=== PATIENT | male | born 1975 | race Native Hawaiian/Other Pacific Islander ===

== ENCOUNTER 2024-07-03 01:59 | Emergency (ER) | payer OTHER, SELFPAY ==
--- NOTE | ~2024-07-03 | XR_ITS ---
CLINICAL HISTORY: ?r pneumonothorax, sub emphysema r flank area 2 view chest x-ray. Comparison: CT/SR - CT ABDOMEN PELVIS WO IV CON - 07/03/24 03:33 EST Findings: The lungs appear clear. There is no consolidation, effusion, or pneumothorax. Cardiomediastinal silhouette is within normal limits. IMPRESSION: No acute cardiopulmonary abnormality. This document has been electronically signed by: Hansel Hair MD on 07/03/2024 04:05:59
--- NOTE | ~2024-07-03 | CT_ITS ---
CLINICAL HISTORY: Right flank pain CT abdomen and pelvis without contrast Comparison: None Findings: No consolidation or effusion. The gallbladder and solid organs are within normal limits. No renal stones. No hydronephrosis or hydroureter. No significant perinephric fat stranding. No bowel obstruction, pneumoperitoneum, or pneumatosis. Coarse calcifications are identified within the prostate gland. A tiny amount of fat is identified within the bilateral inguinal canals. No bladder wall thickening identified. Normal appendix. No acute fracture identified. Posterior spinal fusion hardware in place with bilateral pedicle screws at the L4 and L5 vertebral levels. Minimal grade 1 retrolisthesis of L3 on L4. Posterior disc osteophyte complex present at L1-L2 with associated central canal stenosis which appears severe. IMPRESSION: 1. No acute inflammatory process identified within the abdomen or pelvis. No radiopaque renal calculi, hydronephrosis, or hydroureter. This document has been electronically signed by: Benjamin lAicea MD on 07/03/2024 04:37:32
[2024-07-03 02:01] VITALS: BP 122/81; PULSE 85; RESP 20; TEMP 36.4; O2SAT 95; BMI 42.4
[2024-07-03 03:06] LABS: MANUAL DIFF FLAG NO
[2024-07-03 03:07] LABS: Basophils Percent Auto 0.4 % (0-2); Eosinophils Absolute Auto 0.2 X10*3/uL (0.0-0.4); Eosinophils Percent Auto 2.6 % (0-4); Hematocrit 48.5 % (42.0-52.0); Hemoglobin 17.3 g/dl (14.0-18.0); Imm Gran Abs Auto 0.01 X10*3/uL (0.00-0.03); Imm Gran Pct Auto 0.1 % (0.0-0.4); Lymphocytes Absolute Auto 2.5 X10*3/uL (1.2-4.9); Lymphocytes Percent Auto 33.2 % (20-40); Mean Corpuscular HGB Conc 35.7 g/dl (31.0-36.0); Mean Corpuscular Volume 84.2 fL (80.0-98.0); Mean Platelet Volume 9.1 fL (9.4-12.4); Monocytes Absolute Auto 0.6 X10*3/uL (0.1-1.2); Monocytes Percent Auto 7.6 % (2-11); Neutrophils Absolute Auto 4.3 x10*3/uL (2.0-8.3); Neutrophils Percent Auto 56.1 % (45-73); Platelet Count 197 X10*3/uL (160-400); Red Blood Count 5.76 X10*6/uL (4.60-5.80); Red Cell Distribution Width 15.1 % (11.0-16.0); White Blood Count 7.7 X10*3/uL (4.8-10.8)
--- NOTE | 2024-07-03 03:24 | ED_ITS ---
HPI - Back Pain/Injury General Chief Complaint: Back Pain/Injury Stated Complaint: lower back and side pain Time Seen by Provider: 07/03/24 02:58 Source: patient Mode of arrival: ambulatory Limitations: no limitations History of Present Illness ED Provider: HPI Narrative: Patient's history of chronic back pain status post posterior spinal fusion comes here for 3- 4 weeks of left lower back pain denies any recent trauma no radiation of pain to the lower extremity no bladder or bowel involvement patient was seen at urgent care center was given methocarbamol without much response no history of kidney stone no gross hematuria Related Data Previous Rx's ?Medication ?Instructions ?Recorded cefuroxime axetil 500 mg tablet 500 mg PO BID 7 days #14 tabs 07/03/24 cyclobenzaprine 10 mg tablet 10 mg PO Q8H #20 tabs 07/03/24 morphine 15 mg immediate release 15 mg PO Q8H PRN pain #15 tabs 07/03/24 tablet Allergies Allergy/AdvReac Type Severity Reaction Status Date / Time amoxicillin Allergy Hives Verified 07/03/24 02:04 tizanidine AdvReac Hallucinati Verified 07/03/24 02:05 ons Review of Systems 2 Review of Systems: Yes all other systems are reviewed and are negative PMFSH Social History Social History Advance Directives: No Advance Directives Information Provided: Yes Do you have a plan to hurt others: No Plan Physical Exam 2 Vital Signs: Vital Signs: Last Vital Signs Temp 97.8 F 07/03/24 05:55 Pulse 79 07/03/24 05:55 Resp 18 07/03/24 05:55 BP 109/72 07/03/24 05:55 Pulse Ox 96 07/03/24 05:55 O2 Del Method Room Air 07/03/24 05:55 BMI result Body Mass Index 42.4 Appearance: Alert. Oriented X3. No acute distress. Eyes: PERRLA, No Nystagmus ENT: Pharynx normal. Oral Mucosa moist Neck: Normal inspection. Neck supple. CVS: Normal heart rate and rhythm. Pulses normal. Respiratory: No respiratory distress. Equal air entry bilateral, no wheezing/rales/rhonchi Abdomen: Soft and nontender. Bowel sounds are present, tenderness right lumbar paraspinal area no mass palpable, no CVA tenderness Skin: Skin warm and dry. Normal skin color. Normal skin turgor. Extremities: No lower extremity edema. No calf tenderness SLR negative bilaterally sacral sensation intact Neuro: Oriented X 3. No motor deficit. No sensory deficit.No cerebellar signs , cranial nerves II-XII intact Medications Administered Discontinued Medications Generic Name Dose Route Start Last Admin Trade Name Ellen PRN Reason Stop Dose Admin Cyclobenzaprine HCl 10 mg 07/03/24 06:34 07/03/24 06:48 Cyclobenzaprine Hcl 10 Mg Tablet PO 07/03/24 06:35 10 mg ONCE ONE Administration Morphine Sulfate 15 mg 07/03/24 04:00 07/03/24 04:10 Morphine Sulfate Immed Release 15 Mg Tablet PO 07/03/24 04:01 15 mg ONCE ONE Administration Oxycodone HCl 10 mg 07/03/24 06:34 07/03/24 06:48 Oxycodone Hcl Immed Release 5 Mg Tablet PO 07/03/24 06:35 10 mg ONCE ONE Administration Medical Decision Making Medical Decision Making [facility] Narrative: Patient with chronic back pain comes here for increased pain in the right lower back for last [address] scan negative for acute urine also negative discharge patient home on oxycodone and muscle relaxant urine showed WBCs and bacteria possible causing the contributing to the pain will prescribe cefuroxime Differential Diagnosis Differential Diagnoses: The differential diagnosis associated with the presentation includes Renal colic/hardware failure/fracture/strain/pyelonephritis/UTI Admission/Observation Consideration of admission/observation: Escalation of care including admission/observation considered Lab Data [facility] Lab Attestation statement: I reviewed the patient's lab results. 07/03/24 03:00 07/03/24 03:00 Labs: Lab Results 07/03/24 07/03/24 Range/Units 03:00 06:11 WBC 7.7 (4.8-10.8) X10*3/uL RBC 5.76 (4.60-5.80) X10*6/uL Hgb 17.3 (14.0-18.0) g/dl Hct 48.5 (42.0-52.0) % MCV 84.2 (80.0-98.0) fL MCH 30.0 (27.0-33.0) pg MCHC 35.7 (31.0-36.0) g/dl RDW 15.1 (11.0-16.0) % Plt Count 197 (160-400) X10*3/uL MPV 9.1 L (9.4-12.4) fL Immature Gran % (Auto) 0.1 (0.0-0.4) % Neut % (Auto) 56.1 (45-73) % Lymph % (Auto) 33.2 (20-40) % [place] % (Auto) 7.6 (2-11) % Eos % (Auto) 2.6 (0-4) % Baso % (Auto) 0.4 (0-2) % Lymph # (Auto) 2.5 (1.2-4.9) X10*3/uL [place] # (Auto) 0.6 (0.1-1.2) X10*3/uL Eos # (Auto) 0.2 (0.0-0.4) X10*3/uL Baso # (Auto) 0.0 (0.0-0.2) X10*3/uL Abs Immat Gran (auto) 0.01 (0.00-0.03) X10*3/uL Absolute Neuts (auto) 4.3 (2.0-8.3) x10*3/uL Absolute Nucleated RBC 0.000 (0.0-0.012) X10*3/uL Nucleated RBC % (auto) 0.0 (0.0-0.2) /100WBC Sodium 143 (135-145) mmol/L Potassium 3.6 (3.3-5.1) mmol/L Chloride 110 H (96-108) mmol/L Carbon Dioxide 23 (22-29) mmol/L Anion Gap 14 (12-20) BUN 22 H (9-16) mg/dL Creatinine 2.14 H (0.5-1.4) mg/dL Estim Creat Clear Calc 48.5 Estimated GFR 33 Random Glucose 94 (60-115) mg/dL Calcium 8.4 (8.4-10.2) mg/dL Total Bilirubin 0.7 (0.0-1.0) mg/dL AST 21 (5-37) U/L ALT 21 (0-40) U/L Alkaline Phosphatase 64 (39-117) U/L Total Protein 6.8 (6.5-8.0) g/dL Albumin 4.1 (3.5-5.0) g/dL Urine Color Yellow Urine Appearance Cloudy Urine pH 5.0 (5.0-9.0) Ur Specific [place] 1.015 (1.005-1.025) Urine Protein 30 (1+) H (Neg-Trace) mg/dL Urine Glucose (UA) >=1000 H (Negative) mg/dL Urine Ketones Negative (Negative) mg/dL Urine Blood Negative (Negative) Urine Nitrite Negative (Negative) Ur Leukocyte Esterase Moderate (2+) H (Negative) Urine RBC 0-2 (0-2) /HPF Urine WBC 21-50 (0-5) /HPF Ur Squamous Epith Cells 3-5 (0-2) /HPF Urine Bacteria 1+ (None Seen) Hyaline Casts 3-5 (0-2) /LPF Independent Interpretation I performed an independent interpretation of an: CT Scan Radiology Impression Discussion of test interpretation with radiology: I have reviewed the radiologist's reading. Radiologist Impression: [place] [id number] CT Scan Report Signed Patient: Ross Cordero MR#: [id number] : 1975 Acct:[id number] Age/Sex: 48 / M ADM Date: 07/03/24 Loc: .ED Attending Dr: Ordering Physician: Abe Abdi MD Date of Service: 07/03/24 Procedure(s): CT abdomen pelvis wo IV con Accession Number(s): [id number] cc: Jana Meier MD; Abe Abdi MD~ Report Number: [id number]: Total DLP = 900.00 mGy-cm CLINICAL HISTORY: Right flank pain CT abdomen and pelvis without contrast Comparison: None Findings: No consolidation or effusion. The gallbladder and solid organs are within normal limits. No renal stones. No hydronephrosis or hydroureter. No significant perinephric fat stranding. No bowel obstruction, pneumoperitoneum, or pneumatosis. Coarse calcifications are identified within the prostate gland. A tiny amount of fat is identified within the bilateral inguinal canals. No bladder wall thickening identified. Normal appendix. No acute fracture identified. Posterior spinal fusion hardware in place with bilateral pedicle screws at the L4 and L5 vertebral levels. Minimal grade 1 retrolisthesis of L3 on L4. Posterior disc osteophyte complex present at L1-L2 with associated central canal stenosis which appears severe. IMPRESSION: 1. No acute inflammatory process identified within the abdomen or pelvis. No radiopaque renal calculi, hydronephrosis, or hydroureter. This document has been electronically signed by: Benjamin Alicea MD on 07/03/2024 04:37:32 Dictated By: Benjamin Alicea MD Signed By: <Electronically signed by Benjamin Alicea MD in OV> 07/03/24 0438 Discharge Plan Discharge Clinical Impression: Strain of lumbar region, UTI (urinary tract infection) Patient Disposition: Home, Self-Care Instructions: Urinary Tract Infection in Men (ED), Back Pain (ED) Additional Instructions: Rest at home You have slight UTI take antibiotic as prescribed maybe that is contributing to increased pain Take pain medication and muscle relaxant as advised Follow up with your pain clinic/orthopedic Prescriptions: New cyclobenzaprine 10 mg tablet 10 mg PO Q8H Qty: 20 0RF morphine 15 mg tablet 15 mg PO Q8H PRN (Reason: pain) Qty: 15 0RF Rx Instructions: Partial Fill upon patient request. cefuroxime axetil 500 mg tablet 500 mg PO BID 7 Days Qty: 14 0RF Print Language: Yi
[2024-07-03 03:28] LABS: Alanine Aminotransferase 21 U/L (0-40); Albumin Level 4.1 g/dL (3.5-5.0); Alkaline Phosphatase 64 U/L (39-117); Anion Gap 14 (12-20); Aspartate Amino Transferase 21 U/L (5-37); Bilirubin Total 0.7 mg/dL (0.0-1.0); Blood Urea Nitrogen 22 mg/dL (9-16); Calcium 8.4 mg/dL (8.4-10.2); Carbon Dioxide 23 mmol/L (22-29); Chloride 110 mmol/L (96-108); Creatinine Clr Calc Pharmacy 48.5; Estimated Glomerular Filt Rate 33; Glucose Random 94 mg/dL (60-115); Potassium 3.6 mmol/L (3.3-5.1); Sodium 143 mmol/L (135-145); Total Protein 6.8 g/dL (6.5-8.0)
[2024-07-03] MEDS: Morphine Sulfate Immed Release 15 MG TABLET PO (04:10)
[2024-07-03 05:55] VITALS: BP 109/72; PULSE 79; RESP 18; TEMP 36.6; O2SAT 96
[2024-07-03 06:16] LABS: Appearance Urine Cloudy; Color Urine Yellow; Glucose Urine UA >=1000 mg/dL (Negative); Leukocyte Esterase Urine Moderate (2+) (Negative); Nitrite Urine Negative (Negative); Specific Gravity - Urine 1.015 (1.005-1.025); UMIC TRIGGER UACC YES; Urine Blood Negative (Negative); Urine Ketones Negative (Negative); Urine Protein 30 (1+) mg/dL (Neg-Trace)
[2024-07-03 06:46] LABS: Bacteria Urine 1+ (None Seen); RBC Urine 0-2 /HPF (0-2); UACC Culture Trigger YES; WBC Urine 21-50 /HPF (0-5)
[2024-07-03] MEDS: oxyCODONE HCl Immed Release 5 MG TABLET 10 MG PO (06:48)
[2024-07-03] MEDS: Cyclobenzaprine HCl 10 MG TABLET PO (06:48)
[2024-07-03 07:10] VITALS: BP 110/69; PULSE 81; RESP 20; TEMP 36.4; O2SAT 96
[2024-07-03] MEDS: cefuroxime axetiL 500 MG TABLET PO (07:11)
[2024-07-03 07:13] VITALS: BP 110/69; PULSE 81; RESP 20; TEMP 36.4; O2SAT 96
== END 2024-07-03 07:13 | disposition home or self-care (01) ==
PROVIDERS: Emergency Provider Internal Medicine; PCP Internal Medicine
DX: S39.012A Strain of muscle, fascia and tendon of lower back, initial encounter (principal); X58.XXXA Exposure to other specified factors, initial encounter; N39.0 Urinary tract infection, site not specified; Y93.9 Activity, unspecified; Y92.9 Unspecified place or not applicable; Y99.9 Unspecified external cause status
CPT/HCPCS: 36415; 71046; 74176; 80053; 81001; 85025; 87086; 99284

== ENCOUNTER → 2024-07-03 03:24 | Outpatient (BNV) | payer OTHER, SELFPAY | PROVIDERS: Emergency Provider Internal Medicine; PCP Internal Medicine; Visit Provider Radiology Diagnostic Radiology | DX: N42.0 Calculus of prostate (principal); M25.78 Osteophyte, vertebrae; M48.062 Spinal stenosis, lumbar region with neurogenic claudication; M54.6 Pain in thoracic spine | CPT/HCPCS: 71046; 74176 ==

== ENCOUNTER 2024-08-12 08:40 | Emergency (ER) | payer OTHER, SELFPAY ==
--- NOTE | ~2024-08-12 | CT_ITS ---
EXAMINATION: CT ABDOMEN PELVIS WITHOUT IV CONTRAST HISTORY: flank pain COMPARISON: Comparison is made with the prior examination dated 07/03/2024. TECHNIQUE: CT scan of the abdomen and pelvis was performed without contrast using standard departmental protocol. Coronal and sagittal reformatted images were generated and reviewed. Oral contrast material was not administered per department protocol. This CT exam was performed with one or more of the following dose reduction techniques: automated exposure control, adjustment of the mA and/or kV according to patient size, use of iterative reconstruction technique. DLP: 859 mGy-cm FINDINGS: LOWER CHEST: The visualized lung bases are clear. There is no pleural effusion. CARDIOVASCULATURE: The heart is normal in size. There is no pericardial effusion. LIVER: The liver is normal in size and contour. The liver has an unremarkable unenhanced appearance. GALLBLADDER / BILE DUCTS: The gallbladder is unremarkable. There is no intra or extrahepatic biliary ductal dilatation. SPLEEN: The spleen is normal in size and has an unremarkable unenhanced appearance. PANCREAS: The pancreas has an unremarkable unenhanced appearance. ADRENAL GLANDS: Unremarkable. KIDNEYS/RETROPERITONEUM: No renal or ureteral calculi are identified. There is no hydronephrosis or hydroureter. LYMPH NODES: No retroperitoneal lymphadenopathy is identified in the abdomen or pelvis. VASCULATURE: The abdominal aorta is normal in caliber. MESENTERY/PERITONEUM: No free fluid. No masses. There is no free intraperitoneal gas. STOMACH: There is debris in the stomach. SMALL BOWEL: The small bowel is normal in caliber. COLON: The colon is unremarkable. APPENDIX: Normal. URINARY BLADDER/PELVIC ORGANS: The urinary bladder is unremarkable. The prostate is normal in size. BONES / SOFT TISSUES: The patient is status post posterior fusion of L4 and L5 with pedicle screws and spinal stabilization rods. CT/CT abdomen pelvis wo IV con IMPRESSION: No evidence of nephrolithiasis or ureteral obstruction. No acute abnormality is identified. Electronically signed by: Sabino Ward MD 08/12/2024 11:51 AM [facility]
[2024-08-12 08:59] VITALS: BP 106/70; PULSE 83; RESP 18; TEMP 36.4; O2SAT 98; BMI 42.5
[2024-08-12 09:15] LABS: MANUAL DIFF FLAG NO
[2024-08-12 09:17] LABS: Appearance Urine Clear; Color Urine Yellow; Glucose Urine UA 500 mg/dL (Negative); Leukocyte Esterase Urine Trace (Negative); Nitrite Urine Negative (Negative); UMIC TRIGGER UACC YES; Urine Blood Negative (Negative); Urine Ketones Negative (Negative); Urine Protein Negative (Neg-Trace)
[2024-08-12 09:19] LABS: Bacteria Urine None Seen (None Seen); Basophils Percent Auto 0.6 % (0-2); Eosinophils Absolute Auto 0.3 X10*3/uL (0.0-0.4); Eosinophils Percent Auto 4.3 % (0-4); Hematocrit 50.2 % (42.0-52.0); Hemoglobin 17.8 g/dl (14.0-18.0); Hyaline Casts Urine 0-2 /LPF (0-2); Imm Gran Abs Auto 0.01 X10*3/uL (0.00-0.03); Imm Gran Pct Auto 0.2 % (0.0-0.4); Lymphocytes Absolute Auto 2.1 X10*3/uL (1.2-4.9); Lymphocytes Percent Auto 32.3 % (20-40); Mean Corpuscular HGB Conc 35.5 g/dl (31.0-36.0); Mean Corpuscular Hemoglobin 30.5 pg (27.0-33.0); Mean Platelet Volume 9.3 fL (9.4-12.4); Monocytes Absolute Auto 0.6 X10*3/uL (0.1-1.2); Monocytes Percent Auto 8.7 % (2-11); Neutrophils Absolute Auto 3.5 x10*3/uL (2.0-8.3); Neutrophils Percent Auto 53.9 % (45-73); Platelet Count 176 X10*3/uL (160-400); RBC Urine 0-2 /HPF (0-2); Red Blood Count 5.84 X10*6/uL (4.60-5.80); Red Cell Distribution Width 15.3 % (11.0-16.0); Squamous Epithelial Cell Urine 0-2 /HPF (0-2); WBC Urine 0-5 /HPF (0-5); White Blood Count 6.6 X10*3/uL (4.8-10.8)
[2024-08-12 09:35] LABS: Alanine Aminotransferase 45 U/L (0-40); Albumin Level 4.4 g/dL (3.5-5.0); Alkaline Phosphatase 63 U/L (39-117); Anion Gap 16 (12-20); Aspartate Amino Transferase 27 U/L (5-37); Bilirubin Total 0.5 mg/dL (0.0-1.0); Blood Urea Nitrogen 23 mg/dL (9-16); Calcium 9.3 mg/dL (8.4-10.2); Carbon Dioxide 20 mmol/L (22-29); Chloride 109 mmol/L (96-108); Creatinine Clr Calc Pharmacy 59.1; Estimated Glomerular Filt Rate 41; Glucose Random 99 mg/dL (60-115); Potassium 4.3 mmol/L (3.3-5.1); Sodium 141 mmol/L (135-145); Total Protein 7.7 g/dL (6.5-8.0)
--- NOTE | 2024-08-12 10:53 | ED_ITS ---
HPI - General Adult General Chief complaint: Abdominal Pain Stated complaint: Rib pain Time Seen by Provider: 08/12/24 10:52 Source: patient and old records reviewed Mode of arrival: ambulatory Limitations: no limitations History of Present Illness ED Provider: Sridevi Lott PA-C HPI narrative: Patient is a 48 year old assigned male at with a history of atrial fib on anti-coags, CKD, MASOOD, HTN, AMINTA, PTSD, and DM presenting to the emergency department today with bilateral flank pain and central back pain. Patient states that he was seen here 1 month ago for something similar and was told that it was a UTI. Patient states that he is concerned that he has a UTI again now because he is having bilateral flank and spine pain with walking. Patient denies any dizziness, lightheadedness, abdominal pain, nausea, vomiting, fever, chills, blurry vision, double vision, loss of vision, chest pain, difficulty breathing, shortness of breath, night sweats, pain with urination, increased urinary frequency, increased urinary urgency, blood in his urine or stool, syncope or a near syncopal episode, recent trauma or falls, bowel incontinence, bladder incontinence, or any other complaints at this time. Relieving factors: rest Exacerbating factors: movement Associated symptoms: denies other symptoms Treatments prior to arrival: none Related Data Previous Rx's ?Medication ?Instructions ?Recorded cefuroxime axetil 500 mg tablet 500 mg PO BID 7 days #14 tabs 07/03/24 cyclobenzaprine 10 mg tablet 10 mg PO Q8H #20 tabs 07/03/24 morphine 15 mg immediate release 15 mg PO Q8H PRN pain #15 tabs 07/03/24 tablet cyclobenzaprine 5 mg tablet 5 mg PO TID PRN pain 7 days #21 08/12/24 tabs Allergies Allergy/AdvReac Type Severity Reaction Status Date / Time amoxicillin Allergy Hives Verified 08/12/24 09:03 tizanidine AdvReac Hallucinati Verified 08/12/24 09:03 ons Review of Systems 2 Constitutional: Constitutional: Reports no additional constitutional complaints, Denies chills, Denies fever(s) and Denies night sweats Eyes: Eyes: Reports no additional eye complaints, Denies blurry vision, Denies change in vision, Denies diplopia, Denies eye discharge, Denies loss of vision and Denies eye pain ENT: Denies dizziness Cardiovascular: Cardiovascular: Reports no additional cardiovascular complaints, Denies chest pain, Denies lightheadedness, Denies Loss of Consciousness and Denies dyspnea Respiratory: Respiratory: Reports no additional respiratory complaints and Denies dyspnea Gastrointestinal: Gastrointestinal: Reports no additional gastrointestinal complaints, Denies abdominal pain, Denies melena, Denies hematochezia, Denies change in bowel habits and Denies change in stool character Genitourinary: Genitourinary: Reports no additional male genitourinary complaints, Denies hematuria, Denies oliguria, Denies difficulty urinating, Denies dysuria, Reports flank pain, Denies urinary frequency, Denies urinary hesitancy, Denies urinary incontinence and Denies urinary urgency Musculoskeletal: Musculoskeletal: Reports no additional musculoskeletal complaints, Reports back pain, Denies numbness and Denies tingling Neurologic: Denies dizziness, Denies loss of vision, Denies numbness and Denies tingling Psychiatric: Psychiatric: Reports no additional psychiatric complaints Endocrine: Endocrine: Reports no additional endocrine complaints Hematologic/Lymphatic: Hematologic/Lymphatic: Reports no additional hematologic/lymphatic complaints Allergic/Immunologic: Allergic/Immunologic: Reports no additional allergic/immunologic complaints PMFSH Past Medical History Attestation statement: The following information was validated with the patient. Source: old records reviewed and nursing notes reviewed Social History Social History Advance Directives: No Advance Directives Information Provided: Yes Do you have a plan to hurt others: No Plan Physical Exam ED Vital Signs: Vital Signs - 24 hr 08/12/24 08:59 Temperature 97.6 F Pulse Rate 83 Respiratory Rate 18 Blood Pressure 106/70 Pulse Oximetry 98 Oxygen Delivery Method Room Air BMI result Body Mass Index 42.5 Const General: cooperative, no acute distress, alert and awake Nutritional Appearance: well nourished Orientation/consciousness: patient oriented x3 Limitations: no limitations HENMT Head: Yes normal to inspection and Yes atraumatic Ears: hearing grossly normal bilaterally and external ears normal General nose exam: Normal external nose present, no nasal discharge noted and no epistaxis Face and sinus: Yes normal facial exam, No abrasion and No laceration Mouth: Normal oral and palatal mucosa present, no drooling and no muffled voice Eyes General: appearance normal, both eyes and all related structures Periorbital: periorbital findings normal Eyelids: Yes eyelids normal Conjunctivae: conjunctivae normal Pupils: Equal, round and reactive pupils present EOM: EOMs intact bilaterally Neck Neck: Yes normal visual inspection, Yes full ROM and Yes no lymphadenopathy Chest Chest palpation & inspection: normal inspection of the chest Resp Effort & Inspection: normal respiratory effort and able to speak in complete sentences GI Inspection: Yes normal to inspection Neuro General: patient oriented x3, moves all extremities and CN's II-XI intact bilaterally Cranial nerves: Yes Equal, round and reactive pupils present Cognition (Neuro): normal cognition Extrem General: Yes normal to inspection, Yes full ROM and Yes capillary refill normal Psych Appearance: grossly normal Mental Status: mental status grossly normal Affect: normal affect Attitude: cooperative Thought process: Normal thought process present Thought content: Normal thought content present Insight: Good insight present (Psych) Medications Administered Discontinued Medications Generic Name Dose Route Start Last Admin Trade Name Freq PRN Reason Stop Dose Admin Sodium Chloride 1,000 mls @ 999 mls/hr 08/12/24 11:00 08/12/24 11:10 Ns IV 08/12/24 12:00 999 mls/hr .Q1H1M LIZZY Administration Ketorolac Tromethamine 15 mg 08/12/24 10:57 08/12/24 11:10 Ketorolac Tromethamine 15 Mg/Ml Vial IVPUSH 08/12/24 10:58 15 mg ONCE ONE Administration Medical Decision Making Medical Decision Making [facility] Narrative: Patient is a 48 year old assigned male at with a history of atrial fib on anti-coags, CKD, MASOOD, HTN, AMINTA, PTSD, and DM presenting to the emergency department today with bilateral flank pain and central back pain. Patient's physical exam was unremarkable. Patient's blood work showed a mildly elevated CR. When reviewing the patient's records from [facility] - this is consistent with the patient's baseline. Patient's urine showed no acute process. Patient's CT abd/pelvis showed no acute process. I explained my physical exam findings as well as all test results to the patient. I answered all questions asked by the patient. Patient's clinical presentation is most consistent with musculoskeletal back pain. I stressed the importance of the patient taking his medication as directed (either prescribed or as the over the counter packaging recommends). I stressed the importance of the patient following up with his primary care provider. I stressed the importance of the patient returning to the emergency department immediately if his symptoms were to worsen or if he were to develop any dizziness, shortness of breath, difficulty breathing, chest pain, blurry vision, loss of vision, nausea, vomiting, abdominal pain, fever, chills, back pain, or any other complaints. Patient verbalized agreement and understanding with this treatment plan and discharge. Differential Diagnosis Differential Diagnoses: The differential diagnosis associated with the presentation includes Flank pain UTI Kidney stone Back pain Musculoskeletal pain Admission/Observation Consideration of admission/observation: Escalation of care including admission/observation considered Patient would have been admitted to the hospital had his work up had any findings where hospital admission was appropriate and his clinical presentation warranted hospital admission. Lab Data [facility] Lab Attestation statement: I reviewed the patient's lab results. My interpretation of these results are in the [facility] Rationale portion of this note. 08/12/24 09:11 08/12/24 09:11 Labs: Lab Results 08/12/24 Range/Units 09:11 WBC 6.6 (4.8-10.8) X10*3/uL RBC 5.84 H (4.60-5.80) X10*6/uL Hgb 17.8 (14.0-18.0) g/dl Hct 50.2 (42.0-52.0) % MCV 86.0 (80.0-98.0) fL MCH 30.5 (27.0-33.0) pg MCHC 35.5 (31.0-36.0) g/dl RDW 15.3 (11.0-16.0) % Plt Count 176 (160-400) X10*3/uL MPV 9.3 L (9.4-12.4) fL Immature Gran % (Auto) 0.2 (0.0-0.4) % Neut % (Auto) 53.9 (45-73) % Lymph % (Auto) 32.3 (20-40) % [place] % (Auto) 8.7 (2-11) % Eos % (Auto) 4.3 H (0-4) % Baso % (Auto) 0.6 (0-2) % Lymph # (Auto) 2.1 (1.2-4.9) X10*3/uL [place] # (Auto) 0.6 (0.1-1.2) X10*3/uL Eos # (Auto) 0.3 (0.0-0.4) X10*3/uL Baso # (Auto) 0.0 (0.0-0.2) X10*3/uL Abs Immat Gran (auto) 0.01 (0.00-0.03) X10*3/uL Absolute Neuts (auto) 3.5 (2.0-8.3) x10*3/uL Absolute Nucleated RBC 0.000 (0.0-0.012) X10*3/uL Nucleated RBC % (auto) 0.0 (0.0-0.2) /100WBC Sodium 141 (135-145) mmol/L Potassium 4.3 (3.3-5.1) mmol/L Chloride 109 H (96-108) mmol/L Carbon Dioxide 20 L (22-29) mmol/L Anion Gap 16 (12-20) BUN 23 H (9-16) mg/dL Creatinine 1.76 H (0.5-1.4) mg/dL Estim Creat Clear Calc 59.1 Estimated GFR 41 Random Glucose 99 (60-115) mg/dL Estimat Average Glucose 97 mg/dL Hemoglobin A1c % 5.0 (<6.0) % Calcium 9.3 D (8.4-10.2) mg/dL Magnesium 2.0 (1.6-2.6) mg/dL Total Bilirubin 0.5 (0.0-1.0) mg/dL AST 27 (5-37) U/L ALT 45 H (0-40) U/L Alkaline Phosphatase 63 (39-117) U/L Total Protein 7.7 (6.5-8.0) g/dL Albumin 4.4 (3.5-5.0) g/dL Urine Color Yellow Urine Appearance Clear Urine pH 5.0 (5.0-9.0) Ur Specific [place] 1.010 (1.005-1.025) Urine Protein Negative (Neg-Trace) mg/dL Urine Glucose (UA) 500 H (Negative) mg/dL Urine Ketones Negative (Negative) mg/dL Urine Blood Negative (Negative) Urine Nitrite Negative (Negative) Ur Leukocyte Esterase Trace H (Negative) Urine RBC 0-2 (0-2) /HPF Urine WBC 0-5 (0-5) /HPF Ur Squamous Epith Cells 0-2 (0-2) /HPF Urine Bacteria None Seen (None Seen) Hyaline Casts 0-2 (0-2) /LPF Independent Interpretation I performed an independent interpretation of an: CT Scan Interpretation: My interpretation is in agreement with the radiologist's impression of this imaging study. L Report Number: [id number]: Total DLP = 671.00 mGy-cm EXAMINATION: CT ABDOMEN PELVIS WITHOUT IV CONTRAST HISTORY: flank pain COMPARISON: Comparison is made with the prior examination dated 07/03/2024. TECHNIQUE: CT scan of the abdomen and pelvis was performed without contrast using standard departmental protocol. Coronal and sagittal reformatted images were generated and reviewed. Oral contrast material was not administered per department protocol. This CT exam was performed with one or more of the following dose reduction techniques: automated exposure control, adjustment of the mA and/or kV according to patient size, use of iterative reconstruction technique. DLP: 859 mGy-cm FINDINGS: LOWER CHEST: The visualized lung bases are clear. There is no pleural effusion. CARDIOVASCULATURE: The heart is normal in size. There is no pericardial effusion. LIVER: The liver is normal in size and contour. The liver has an unremarkable unenhanced appearance. GALLBLADDER / BILE DUCTS: The gallbladder is unremarkable. There is no intra or extrahepatic biliary ductal dilatation. SPLEEN: The spleen is normal in size and has an unremarkable unenhanced appearance. PANCREAS: The pancreas has an unremarkable unenhanced appearance. ADRENAL GLANDS: Unremarkable. KIDNEYS/RETROPERITONEUM: No renal or ureteral calculi are identified. There is no hydronephrosis or hydroureter. LYMPH NODES: No retroperitoneal lymphadenopathy is identified in the abdomen or pelvis. VASCULATURE: The abdominal aorta is normal in caliber. MESENTERY/PERITONEUM: No free fluid. No masses. There is no free intraperitoneal gas. STOMACH: There is debris in the stomach. SMALL BOWEL: The small bowel is normal in caliber. COLON: The colon is unremarkable. APPENDIX: Normal. URINARY BLADDER/PELVIC ORGANS: The urinary bladder is unremarkable. The prostate is normal in size. BONES / SOFT TISSUES: The patient is status post posterior fusion of L4 and L5 with pedicle screws and spinal stabilization rods. CT/CT abdomen pelvis wo IV con IMPRESSION: No evidence of nephrolithiasis or ureteral obstruction. No acute abnormality is identified. Electronically signed by: Sabino Ward MD 08/12/2024 11:51 AM EST Dictated By: Sabino Ward MD Signed By: Electronically signed by Sabino Ward MD 08/12/24 1151 Radiology Impression Discussion of test interpretation with radiology: I have reviewed the radiologist's reading. Prescription Management I considered prescription management with: Pain Medication (patient prescribed pain medication) Chronic Conditions Patient?s care impacted by: Diabetes Discharge Plan Discharge Clinical Impression: Musculoskeletal back pain Patient Disposition: Home, Self-Care Instructions: Back Pain (ED) Additional Instructions: Your work up today was reassuring. Your labs are consistent with your baseline. Your imaging showed no acute process. Follow up with your primary care provider. Return to the emergency department immediately if your symptoms worsen or if you develop any dizziness, shortness of breath, difficulty breathing, chest pain, blurry vision, loss of vision, nausea, vomiting, abdominal pain, fever, chills, back pain, or any other complaints. Prescriptions: New cyclobenzaprine 5 mg tablet 5 mg PO TID PRN (Reason: pain) 7 Days Qty: 21 0RF No Action cyclobenzaprine 10 mg tablet 10 mg PO Q8H Qty: 20 0RF morphine 15 mg tablet 15 mg PO Q8H PRN (Reason: pain) Qty: 15 0RF Rx Instructions: Partial Fill upon patient request. cefuroxime axetil 500 mg tablet 500 mg PO BID 7 Days Qty: 14 0RF Referrals: Jana Meier MD [Primary Care Provider] - Stand Alone Forms: Work/School Release Print Language: Estonian
[2024-08-12] MEDS: Ketorolac Tromethamine 15 MG/ML VIAL IVPUSH (11:10)
[2024-08-12] MEDS: 0.9 % Sodium Chloride 1,000 ML 999 ML IV (11:10)
[2024-08-12 11:18] LABS: Estimated Average Glucose 97 mg/dL; Hemoglobin A1C 141.2444 umol/L; Total Hemoglobin (HGBA1C) 4461.8068 umol/L
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
--- OUTSIDE RECORDS SUMMARY | 2024-08-12 11:45 | XMS_ITS | Clinical Summary ---
Author Organization [facility] Address [address] [place] [address] Care Team Providers Care Knitter Helper Name Role Phone Jana Meier MD Primary Care Provider + Allergies Active Allergy Reactions Criticality Noted Date Comments Amoxicillin 01/10/2023 Medications Medication Sig Dispensed Refills Start Date End Date Status amLODIPine (NORVASC) tablet 10 mg Take 1 tablet (10 mg total) by mouth. 0 09/25/2020 Active Eliquis 5 MG TABS tablet TAKE 1 TABLET BY MOUTH 2 (TWO) TIMES DAILY FURTHER REFILLS REQUIRES APPT WITH PCP 0 12/24/2022 Active aspirin 81 MG EC tablet Take 1 tablet (81 mg total) by mouth daily. 0 09/30/2020 Active atorvastatin (LIPITOR) tablet 40 mg Take 1 tablet (40 mg total) by mouth every night at bedtime. 0 10/24/2022 Active baclofen (LIORESAL) 10 MG tablet Take 1 tablet (10 mg total) by mouth 3 (three) times a day. 0 12/17/2022 Active Jardiance 25 MG TABS Take 1 tablet by mouth every morning. 0 12/23/2022 Active gabapentin (NEURONTIN) 300 MG capsule TAKE 1 CAP ORALLY AT 8AM AND 4PM. 0 10/20/2022 Active gabapentin (NEURONTIN) 800 MG tablet Take 1 tablet (800 mg total) by mouth every evening. 0 12/26/2022 Active metFORMIN (GLUCOPHAGE) tablet 1000 mg Take 1 tablet (1,000 mg total) by mouth 2 (two) times a day. 0 12/17/2022 Active omeprazole (PriLOSEC) 20 MG capsule TAKE 1 CAPSULE BY MOUTH EVERY DAY IN THE MORNING BEFORE BREAKFAST 0 10/12/2022 Active Potassium Chloride ER 20 MEQ TBCR TAKE 1 TABLET BY MOUTH EVERY DAY IN THE MORNING 0 11/13/2022 Active tamsulosin (FLOMAX) 0.4 MG CAPS TAKE 1 CAPSULE BY MOUTH EVERY DAY BEFORE BED 0 11/15/2022 Active torsemide (DEMADEX) 10 MG tablet Take 1 tablet (10 mg total) by mouth daily. 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 01/10/2023 Social History Tobacco Use Types Packs/Day Years Used Date Smoking Tobacco: Never Smokeless Tobacco: Never Tobacco Cessation:Counseling Given: Not Answered Alcohol Use Standard Drinks/Week Comments Not Currently 0 (1 standard drink = 0.6 oz pur e alcohol) Sex and Gender Information Value Date Recorded Sex Assigned at Male 11/21/2022 3:15 PM EDT Gender Identity Not on file Sexual Orientation Not on file Job Start Date Occupation Industry Not on file Not on file Not on file Last Filed Vital Signs Vital Sign Reading Time Taken Comments Blood Pressure 127/81 01/10/2023 3:45 PM EDT Pulse 80 01/10/2023 3:45 PM EDT Temperature 36.7 ??C (98 ??F) 01/10/2023 3:45 PM EDT Respiratory Rate - - Oxygen Saturation 97% 01/10/2023 3:45 PM EDT Inhaled Oxygen Concentration - - Weight 130.8 kg (288 lb 6.4 oz) 01/10/2023 3:45 PM EDT Height - - Body Mass Index - - Plan of Treatment Health Maintenance Due Date Last Done Comments Hepatitis C Screening 1973 Depression Screening 1985 Preventative Health Evaluation 12/30/1991 Colon Cancer Screening (Colonoscopy) 2018 Shingrix-Zoster Vaccine (1 of 2) 12/30/2023 COVID-19 Vaccine (2 - season) 2024 10/10/2021 Influenza Vaccine (#1) 2024 2, 03/10/2020, 03/10/2020, Additional history exists DTap / Tdap / Td (2 - Td or Tdap) 04/29/2029 04/29/2019 Pneumococcal Vaccine Aged Out 04/30/2021, 04/29/20 19 No longer eligible based on patient's age to complete this topic Hepatitis B Vaccines Completed 10/10/2021, 04/30/2021, 02/20/2021 RSV Ped < 20 months Aged Out No longe r eligible based on patient's age to complete this topic Care Teams Knitter Helper Relationship Specialty Start Date End Date Jana Meier MD [address] [place] [id number] PCP - General Internal Medicine 11/28/22
--- OUTSIDE RECORDS SUMMARY | 2024-08-12 11:45 | XMS_ITS ---
Author Name Tito MI, DANIELLE-C, Soni WHITLEY Address [address] [place] [address] Phone [phone] [facility] Care Team Providers Care Drawing Press Operator Name Role Phone Soni Francis Unavailable [phone] Unavailable Unavailable [phone] Unavailable Unavailable Unavailable Unavailable Unavailable Unavailable Unavailable Unavailable [phone] Reason for Referral Not Available Allergies, adverse reactions, alerts Allergen Type Reaction Severity Status Onset Date Amoxicillin-Pot Clavulanate Allergy to substance (disorder) Unknown Active N/A tomatoes Allergy to substance (disorder) Unknown Active N/A Tizanidine Allergy to substance (disorder) Unknown Active N/A onions Allergy to substance (disorder) Unknown Active N/A History of medication use Medication Class Instructions Start Date End Date Gabapentin 800 mg Tab TAKE 1 TABLET BY M OUTH EVERY DAY IN THE EVENING 2022-03-06 No Data Available Jardiance 25 mg Tab TAKE 1 TABLET BY MICHELLE TH EVERY MORNING 2021-11-16 No Data Available DULoxetine 60 mg Cap delayed rel TAKE 1 CAPSULE BY MOUTH TWICE A DAY 2022-04-17 No Data Available Temazepam 15 mg Cap TAKE 1 CAPSULE BY MO UTH NIGHTLY AT BEDTIME NEEDED FOR SLEEP 2022-04-17 No Data Available Meloxicam 7.5 mg Tab TAKE 1 TABLET BY MO UTH EVERY DAY 2022-04-26 No Data Available Omeprazole 20 mg Cap delayed rel TAKE 1 CAPSULE BY MOUTH EVERY DAY IN THE MORNING BEFORE BREAKFAST 2022-04-26 No Data Available traMADol 50 mg Tab TAKE 1 TABLET BY MICHELLE TH EVERY DAY NEEDED FOR PAIN 2022-04-26 No Data Available amLODIPine Besylate 10 mg Tab TAKE 1 TABLET BY MOUTH EVERY DAY 2022-03-29 No Data Available Trulicity 0.75 mg/0.5ML Solution Pen-injector INJECT 0.75 MG SUBCUTANEOUSLY ONE TIME PER WEEK 2022-01-28 No Data Available Atorvastatin Calcium 40 mg Tab TAKE 1 TABLET BY MOUTH EVERYDAY AT BEDTIME 2022-05-14 No Data Available Eliquis 5 mg Tab TAKE 1 TABLET BY MICHELLE TH TWICE A DAY 2022-01-04 No Data Available hydrALAZINE 100 mg Tab TAKE 1 TABLET BY MOUTH 3 TIMES DAILY FOR HIGH BLOOD PRESSURE 2022-01-01 No Data Available Potassium Chloride ER 20 MEQ Tab ER TAKE 1 TABLET BY MOUTH EVERY DAY 2022-05-14 No Data Available Lidocaine 5 % Patch PLACE 1 PATCH ONTO T HE SKIN ONCE DAILY (12 HOURS OFF,12 HOURS ON) 2022-02-15 No Data Available metFORMIN ER 500 mg Tab ER 24hr TAKE 1 TABLET BY MOUTH ONCE A DAY WITH DINNER 2022-02-15 No Data Available Tamsulosin 0.4 mg Cap TAKE 1 CAPSULE BY MOUTH EVERY DAY BEFORE BED 2022-01-15 No Data Available Baclofen 10 mg Tab TAKE 1 TABLET BY MICHELLE TH THREE TIMES A DAY 2022-05-13 No Data Available FLOWFLEX COVID-19 AG HOME TEST USE DIRECTED 2021-07-08 No Data Available Labetalol 200 mg Tab TAKE 1 TABLET BY MO UTH 2 TIMES DAILY FOR 180 DAYS. 2022-07-18 No Data Available Torsemide 20 mg Tab TAKE 1 TABLET BY MICHELLE TH EVERY DAY 2022-07-18 No Data Available Diclofenac Sodium 75 mg Tab delayed rel TAKE 1 TABLET BY MOUTH TWICE A DAY FOR 2 WEEKS 2022-07-23 No Data Available Acetaminophen Extra Strength 500 mg Tab TAKE 2 TABLETS BY MOUTH EVERY 6 HOURS NEEDED FOR PAIN 2022-08-29 No Data Available Methocarbamol 500 mg Tab TAKE 1 TABLET B Y MOUTH FOUR TIMES A DAY 2022-08-29 No Data Available OneTouch Delica Plus [id number] Miscellaneous USE DIRECTED 3 TIMES A DAY 2022-08-30 No Data Available OneTouch Verio Reflect w/Device Kit USE DIRECTED 3 TIMES A DAY 2022-08-30 No Data Available OneTouch Verio Strip USE DIRECTED 3 T IMES A DAY 2022-08-30 No Data Available QUICKVUE AT-HOME COVID-19 TEST DIRECTED 2022-09-10 No Data Available Problem List Problem Status Onset Date Resolved Date Type 2 diabetes mellitus with polyneuropathy Active 2022-10-02 N/A Benign hypertensive cardiomyopathy Active 2023-0 4-05 N/A Hypertension Active 2022-10-02 N/A Hyperlipidemia Active 2022-10-02 N/A Hypercoagulability due to atrial fibrillation Active 2022-10-02 N/A Atrial fibrillation Active 2022-10-02 N/A AMINTA (obstructive sleep apnea) Active 2022-10-02 N/A Chronic kidney disease, stage 3b Active N/A Frequent falls Active 2022-10-02 N/A Borderline personality disorder Active 5 N/A Severe obesity (BMI >= 40) Active 2022-10-02 N /A CHF (congestive heart failur e)/secondary hyperaldosteronism Active 2022-10-02 N/A 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 Active 2022-10-15 N/A Encounters Encounters Type Facility Date of Service Diagnosis/Co mplaint New patient, 30-44min 1 stable chronic or 2 minor; add modifier 95 for video, modifier 93 for [facility]2022 Type 2 diabetes mellitus wit h diabetic polyneuropathyHeart failure, unspecifiedHyp hrt & chr kdny dis w hrt fail and stg 1-4/unsp chr kdnyChronic kidney disease, stage 3bCardiomyopathy in diseases classified elsewhereHyperlipidemia, unspecifiedUnspecified atrial fibrillationOther thrombophiliaObstructive sleep apnea (adult) (pediatric)Repeated fallsBorderline personality disorderMorbid (severe) obesity due to excess caloriesBody mass index (bmi) 50-59.9 , adult New patient, 30-44min 1 stable chronic or 2 minor; add modifier 95 for video, modifier 93 for phone [facility] [employer] [facility]22 New patient, 30-44min 1 stable chronic or 2 minor; add modifier 95 for video, modifier 93 for [facility], [place] 10/01/2022 New patient, 30-44min 1 stable chronic or 2 minor; add modifier 95 for video, modifier 93 for [facility] 10/01/2022 New patient, 30-44min 1 stable chronic or 2 minor; add modifier 95 for video, modifier 93 for [facility] 10/01/2022 New patient, 30-44min 1 stable chronic or 2 minor; add modifier 95 for video, modifier 93 for phone [facility] 10/01/2022 Vital Signs Date of Collection Vitals 2022-10-01 11:03:37 Height - 146.0 cmWei ght - 123.0 kgBody Mass Index (BMI) - 57.7 kg/m2 Social History Social History Social History Observation Description Effec tive Time Current Smoking Status Former smoker 2024-07-31 3 Sex Male History of Procedures Procedures Service Procedure code Service date Servicing provider Phone# New patient, 30-44min 1 stable chronic or 2 minor; add modifier 95 for video, modifier 93 for phone [phone] No Data Available No Data Available BMI obtained (3008F) 3008F 2022-10-01 No Data Availab le No Data Available Functional Status Assessed (1170F) 1170F 2022-10-01 No Data Available No Data Avail able Medication List Documented (1159F) 1159F 2022-10-01 No Data Available No Data Skye ilable Medication Review by prescribing provider or pharmacist documented (1160F) 1160F 2022-10-01 No Data Available No Data Skye ilable Advance Care Directive Advance care planning discussion documented in the medical record (1158F) 1158F 2022-10-01 No Data Available No Data Availa ble Functional Status Functional Category Effective Dates Cognition Status: 2022-10-02 ADL: Bathing Needs Assistanc e , Dressing Independent , Eating Independent , Ambulation Needs Assistance and Transferring Independent 2022-10-02 IADL: Shopping Needs Assista nce , Driving or Public Transport Needs Assistance and Housework Needs Assistance 2022-10-02 Falls in last 6 Months: Yes 2022-10-02 Social Supports - # of Inter actions with Friends/Family in a typical week: 2022-10-02 Mental Status Status Date a&ox3 2022-10-02 Assessments Date of Service Assessments 2022-10-01 11:03:37 Type 2 diabetes samson itus with polyneuropathyBenign hypertensive cardiomyopathyHypertensionHyperlipidemiaAtrial fibrillationHypercoagulability due to atrial fibrillationOSA (obstructive sleep apnea)Chronic kidney disease, stage 3bFrequent fallsBorderline personality disorderSevere obesity (BMI >= 40)CHF (congestive heart failure)/secondary hyperaldosteronism Plan of Care Date of Service Plans 2022-10-01 11:03:37 BMI obtained (3008F) SBP 130-139 (3075F)DBP 80-89 (3079F)Televideo new patient, 30-44min 1 stable chronic or 2 minor; add modifier 95Advance care planning discussed and documented ? advance care plan or surrogate decision-maker was documented in the medical record. (1123F)Advance care planning discussed and documented in the medical record ? beneficiary/patient did not wish to or was unable to provide an advance care plan or name a surrogate decision-maker. (1124F)Continue to see PCP. Follow-up with [facility] as needed for any acute or disease education needs that may arise 20/01.cont jardiance, metformin, trulicitymtr a1cada dietgabapentin for neuropathyfu w endocrineneuro referral will be placed due to chronic fatigue/frequent fallscont hydralazine, amlodipine, labetalol, torsemidemtr bplow na dietfu w cardiologycont labetalol, hydralazine, torsemide, amlodipinemtr bplow na dietfu w cardiologycont atorvastatinmtr lipidslow cholesterol dietfu w cardscont eliquislabetalol for rate controlfu w cardiologycont eliquisfu w cardiology mtr labscpapfu w sleep clinicmtr bun/creatgfrrenally dose medsfu w nephrologyreferral to neurology placedoutside care notesfu w psychbmi 57encourage diet/exercise fu w MDmtr labscont torsemide +potassium, monitor for s/s of fluid overloadlabetalol, amlodipine, hydralazinemtr weightslow na dietfu w cardiology Health Concerns Date Concern 2022-10-01 Patient seen using a udio and video. OR Visit completed via audio by telephone. Patient/Guardian agreed to visit via telehealth. Introductory visit with [facility] to establish care. Today, patient has chief complaint of: establishing care. 2022-10-01 Patient seen using a udio and video. Patient/Guardian agreed to visit via telehealth. Introductory visit with [facility] to establish care. Today, patient has chief complaint of: establishing care.Reviewed Allergies, Medications, Active Medical conditions, past medical/surgical history, Social history. 2022-10-01 Most recent hospital stay(s) or ER visit(s) and precipitating factors:none 2022-10-01 Advance care [place] [facility] discussion. Conversation today with:
--- OUTSIDE RECORDS SUMMARY | 2024-08-12 11:45 | XMS_ITS | Clinical Summary ---
[facility] Address [address] [place] [address] Care Team Providers Care Knapsack Sprayer Name Role Phone Jana Meier MD Primary Care Provider + Medications potassium chloride (KLOR-CON) 20 mEq CR tablet TAKE 1 TABLET BY MOUTH EVERY DAY 90 tablet 08/09/2024 Active Immunizations Name Administration Dates Next Due Moderna SARS-CoV-2 COVID-19, mRNA, LNP-S, preservative free 10/10/2021,11/14/2020,10/10/2020 Surgical History Surgery Date Site/Laterality Comments KNEE SURGERY PROCEDURE: HISTORICAL KNEE SURGERY; COMMENT: as a child OTHER SURGICAL HISTORY PROCEDURE: AK ARTHRODESIS POSTERIOR/PSTLAT TQ 1NTRSPC LUMBAR OTHER SURGICAL HISTORY PROCEDURE: HISTORY OTHER; COMMENT: Laminotomy (hemilaminectomy) with decompression of nerve root including partial factectomy, foraminotomy and or excision of herniated intervertabral disc; 1 interspace, lumbar Medical History Medical History Date Comments Anxiety and depression DX:Anxiet y and depression Chronic kidney disease DX:Chroni c kidney disease AMINTA on CPAP DX:AMINTA on CPAP Osteoarthritis DX:Osteoarthriti s PTSD (post-traumatic stress disorder) DX:PTSD (post-traumatic stress disorder) Family History Medical History Relation Name Comments COPD Mother Heart attack Neg Hx Other cancer Neg Hx Stroke Neg Hx Relation Name Status Comments Mother Alive Social History Tobacco Use Types Packs/Day Years Used Date Smoking Tobacco: Never Smokeless Tobacco: Never Alcohol Use Standard Drinks/Week Comments No 0 (1 standard drink = 0.6 oz pur e alcohol) Sex and Gender Information Value Date Recorded Sex Assigned at Not on file Legal Sex Male 2:21 AM EST Gender Identity Not on file Sexual Orientation Not on file Obstetrics History Last Filed Vital Signs Vital Sign Reading Time Taken Comments Blood Pressure 132/80 07/02/2023 9:09 AM EST Sit ting L Arm Pulse 72 07/02/2023 9:09 AM EST Temperature - - Respiratory Rate - - Oxygen Saturation - - Inhaled Oxygen Concentration - - Weight 122 kg (270 lb) 07/02/2023 9:09 AM EST Height 165.1 cm (5' 5 ) 07/02/2023 9:09 AM EST Body Mass Index 44.93 07/02/2023 9:09 AM EST Plan of Treatment Health Maintenance Due Date Last Done Comments DTaP,Tdap,and Td Vaccines (1 - Tdap) 1992 Hepatitis B Vaccines (1 of 3 - 19+ 3-dose series) 1992 Cholesterol Screening (Lipid Panel) 06/02/2022 Colorectal Cancer Screening: Colonoscopy 06/02/2022 Depression Screening 06/02/2022 HIV Screening 06/02/2022 Hepatitis C Screening 06/02/2022 Social Influencers of Health Screening 06/02/2022 Hypertension/CHF/CAD Annual BMP Blood Test 06/09/2022 Pneumococcal Vaccine: 50+ Years (1 of 1 - PCV) 12/30/2023 Zoster Vaccines (1 of 2) 12/30/2023 COVID-19 Vaccine ( - 2023-2 5 season) 2024 10/10/2021, 11/14/2020, 10/10/2020 Influenza Vaccine (#1) 2024 HIB Vaccines Aged Out No longer eligi ble based on patient's age to complete this topic HPV Vaccines Aged Out No longer eligi ble based on patient's age to complete this topic Hepatitis A Vaccines Aged Out No long er eligible based on patient's age to complete this topic IPV Vaccines Aged Out No longer eligi ble based on patient's age to complete this topic MMR Vaccines Aged Out No longer eligi ble based on patient's age to complete this topic Meningococcal ACWY Vaccine Aged Out N o longer eligible based on patient's age to complete this topic Meningococcal B Vacine Aged Out No lo nger eligible based on patient's age to complete this topic Pneumococcal Vaccine: Pediatrics (0 to 5 Years) and At-Risk Patients (6 to 64 Years) Aged Out No longer eligible b ased on patient's age to complete this topic RSV Immunization Patients Under 20 months Aged Out No longer eligible b ased on patient's age to complete this topic Varicella Vaccines Aged Out No longer eligible based on patient's age to complete this topic Care Teams Knapsack Sprayer Relationship Specialty Start Date End Date Jana Meier MD [address] [place] [id number] PCP - General 11/28/22
[2024-08-12 12:12] VITALS: BP 113/65; PULSE 79; RESP 16; TEMP 36.7; O2SAT 96
[2024-08-12] MEDS: Cyclobenzaprine HCl 5 MG TABLET PO (12:13)
[2024-08-12 12:28] VITALS: BP 113/65; PULSE 79; RESP 16; TEMP 36.7; O2SAT 96
== END 2024-08-12 12:29 | disposition home or self-care (01) ==
PROVIDERS: Physician Assistant Medical; Emergency Provider Emergency Medicine Emergency Medical Services; PCP Internal Medicine
DX: R07.81 Pleurodynia (principal); M54.50 Low back pain, unspecified; R11.2 Nausea with vomiting, unspecified; R10.2 Pelvic and perineal pain; Z79.899 Other long term (current) drug therapy
CPT/HCPCS: 36415; 74176; 80053; 81001; 83036; 83735; 85025; 96361; 96374; 99284; J1885

== ENCOUNTER → 2024-08-12 10:57 | Outpatient (BNV) | payer OTHER, SELFPAY | PROVIDERS: Emergency Provider Emergency Medicine Emergency Medical Services; PCP Internal Medicine; Visit Provider Radiology Diagnostic Radiology | DX: R10.9 Unspecified abdominal pain (principal) | CPT/HCPCS: 74176 ==